=== PATIENT | female | born 1995 | race Caucasian/White ===

== ENCOUNTER 2019-02-17 21:07 | Emergency (ER) | payer BC, OTHER ==
[~2019-02-17] VITALS: Ht 160 cm; Wt 57.4 kg
[~2019-02-17 21:07] MED LIST: ACET500C5 PO; IBUP-1542 PO; PROM6.2515 PO
[2019-02-17 21:10] VITALS: BP 136/72; Ht 160 cm; Wt 57.4 kg
[2019-02-17] MEDS ORDERED: ACETAMINOPHEN 325 MG TAB PO ONE (22:00)
[2019-02-17 23:41] VITALS: PULSE 95; RESP 20
== END 2019-02-17 23:15 | disposition home or self-care (01) ==
LOC: FTE 21:07
DX: R05 Cough (principal)
CPT/HCPCS: 71046